=== PATIENT | female | born 1940 | race Caucasian/White ===

== ENCOUNTER → 2016-07-14 | Outpatient (CLI) | payer MEDICARE ==
[~2016-07-14] MED LIST: AMLO-110 PO; CALC0.2510 PO; CHOL100010 PO; HYDR25TA4 PO; LEVO125T72 PO; TAMO20TA47 PO
== END ==
LOC: C.LABSPEC 14:24
PROVIDERS: ATTEND Surgery
DX: C50.312 Malignant neoplasm of lower-inner quadrant of left female breast (principal)

== ENCOUNTER → 2017-04-26 | Outpatient (CLI) | payer MEDICARE ==
[2016-04-22 13:22] VITALS: BP 191/79; PULSE 70
[~2017-04-26] MED LIST changes: -AMLO-110 PO; +AMLO5TAB3 PO; -TAMO20TA47 PO; +TAMO20TA9 PO
[2017-04-26 13:01] VITALS: BP 205/92; PULSE 76; TEMP 37.1; O2SAT 97
--- NOTE | 2017-04-26 13:32 | Radiation Oncology Follow-Up ---
Radiation Oncology Follow-Up Date of Visit Apr 26, 2017. Reason For Visit Annual follow up Radiation Completion Date 08/09/12 Diagnosis (1) Breast cancer Status: Resolved Onset Date: 05/09/2012 Histology Subtype: ductal Stage: l Permanent Comment: Abnormal left breast mammogram Status post biopsy 05/09/2012 revealing invasive ductal carcinoma Estrogen receptor positive, progesterone receptor positive, HER-2/isiah negative Status post lumpectomy and sentinel lymph node biopsy 05/25/2012 stage [id number] Status post completion of radiation therapy 08/09/2012 received 6120 cGy Ongoing treatment with tamoxifen Last Edited By: Dori Barr on Apr 23, 2015 16:09 Interim History She's been doing well over this past year. She has noted no changes to her breast. There is been no areas of discomfort she's noticed no masses or tenderness and no change of the axilla. She's had no swelling of her arm. She had no complaints of hot flashes. She continues on tamoxifen. She is up-to- date on mammography. She stated that Dr. Dumont will be retiring. He is suggested that she may make the decision in regards to continuation of tamoxifen. If she decides to continue the tamoxifen for the next 5 years she may get refills from her family physician. She does have concerns about the potential side effect of uterine cancer. She had seen Dr. Yana Iyer in the past. She stated that she currently does not have an appointment as has her that she will be retiring. She requested a listing of gynecologists who are in [place]. She would like to have all of her physicians in [place] rather than coming to [place] in traveling the long distance. Allergies Coded Allergies: No Known Allergies (Unverified , 06/20/12) Home Medications Scheduled Amlodipine (Norvasc), 5 MG PO DAILY Calcitriol (Rocaltrol Cap), 0.25 MCG PO BID Cholecalciferol (Vitamin D), 2,000 INTER.UNIT PO DAILY Hydrochlorothiazide (Hctz), 25 MG PO DAILY Levothyroxine Sodium (Synthroid), 125 MCG PO DAILY Tamoxifen (Nolvadex), 20 MG PO DAILY Review of Systems Gastrointestinal: Symptoms: WNL Oral: Symptoms: No Problems Respiratory: Symptoms: WNL Urinary: Symptoms: WNL Skin: Symptoms: No Problems Other Skin Symptoms: Left nipple itchy at times Breast: Right Upper Arm Measurement: 35.5 Right Mid Arm Measurement: 30.1 Right Wrist Measurement: 17.2 Left Upper Arm Measurement: 37.0 Left Mid Arm Measurement: 29.8 Left Wrist Measurement: 17.1 Arm Dominence: Right Patient Cosmetic Evaluation: Good Staff Cosmetic Evalaluation: Good Physical Exam Vital Signs Date Time Temp Pulse Resp B/P (MAP) Pulse Ox O2 Delivery O2 Flow Rate FiO2 04/26/17 13:01 37.1 76 18 205/92 97 General Appearance: no apparent distress Eyes: normal inspection, EOMI ENT: normal ENT inspection, hearing grossly normal Neck: no adenopathy, thyroid normal Respiratory/Chest: lungs clear, no respiratory distress, no accessory muscle use Breast: Breast examination reveals well-healed incisions of the left breast. There is an obvious deficit in the lower inner portion of the breast. There is mild fibrous tissue. She has telangiectasia. There are no masses or tenderness and no axillary adenopathy. Using the [place] score cosmesis she has a fair outcome. The right breast showed no masses or tenderness and no axillary adenopathy. Cardiovascular: regular rate, rhythm, no gallop, no murmur Extremities: no pedal edema Neurologic/Psychiatric: no motor/sensory deficits, alert, normal mood/affect Skin: warm/dry Pain Management Patient Reports Pain: No Pain Location: None Patient Preferred Pain Scale: 0 - 10 Initial Pain Intensity: 0.0 Pain Management Plan She had no pain therefore required no pain management. Laboratory Laboratory Results: not applicable Pathology Pathology Results: not applicable Imaging Imaging Studies: were reviewed, and pertinent findings noted below Imaging Comments She had a bilateral digital mammogram at [facility] on 2016. There was no significant interval change from the previous examination. There is no evidence to suggest any disease recurrence. This was given a BI- RADS Category 2. Assessment & Plan Plan: Continue with annual mammography. She has a mammogram scheduled for May. She'll continue follow-up with Dr. Irby. A listing of gynecologists who see patients in [place] was given to the patient. She'll decide about the tamoxifen and discuss this further with . We did give her an appointment for one year. I expressed to her that this could be canceled if she is able to set up an appointment and then follow with the pedodontist. This physician then we'll do her follow-up breast exams. She may call our office if she has any questions or concerns. Total Time In Follow-Up I spent 20 minutes speaking to the patient performing examination. I spent 15 minutes reviewing information in completing this note. Copy To Torito Irby D.O. Problem Qualifiers (1) Breast cancer: Breast location: lower inner quadrant of breast Estrogen receptor status: positive Patient sex: female Laterality: left Qualified Codes: C50.312 - Malignant neoplasm of lower-inner quadrant of left female breast; Z17.0 - Estrogen receptor positive status [ER+]
== END | disposition home or self-care (01) ==
LOC: C.ONC 12:49
PROVIDERS: ATTEND Physician Assistant Medical
DX: Z08 Encounter for follow-up examination after completed treatment for malignant neoplasm (principal); Z92.3 Personal history of irradiation; Z85.3 Personal history of malignant neoplasm of breast